=== PATIENT | male | born 1965 | race Caucasian/White ===

== ENCOUNTER 2017-12-05 11:51 | Inpatient (IN) | payer MEDICAID ==
[2017-12-05] VITALS (10 sets, daily range): BP systolic 92–116; BP diastolic 59–82
[~2017-12-05] VITALS: Ht 185.4 cm; Wt 117.8 kg
--- NOTE | 2017-12-05 12:11 | NUR ---
TAKEN TO RM 15 VIA WHEELCHAIR. PT C/O OF EXTREME THIRST
--- NOTE | 2017-12-05 12:30 | NUR ---
PT SUPINE IN BED, AIRWAY PATENT, RESP EVEN AND NON LABORED, SKIN P/W/D. C/O INCREASED THIRST. ICE CHIPS GIVEN AT THIS TIME.
[2017-12-05 12:46] LABS: HEMATOCRIT 50.2 % (39.0-50.0); HEMOGLOBIN 17.5 g/dl (14.0-18.0); IMMATURE GRANULOCYTES 0.5 % (0.0-5.0); MEAN CELL VOLUME 84.8 fL CALC (80.0-100.0); MEAN CORPUSCULAR HGB 29.6 pG CALC (26.0-32.0); MEAN CORPUSCULAR HGB CONC 34.9 g/L CALC (32.0-36.0); NEUT# 7.57 thou/uL (1.82-7.42); RED BLOOD COUNT 5.92 mill/uL (4.70-6.10); RED CELL DISTRI WIDTH 12.8 % (11.5-15.5)
[2017-12-05 13:10] LABS: ALBUMIN 4.4 g/dL (3.2-5.0); ALKALINE PHOSPHATASE 154 u/l (38-126); ANION GAP 24 (6-22 (CALC)); BILIRUBIN, TOTAL 0.7 mg/dL (0.0-1.4); BUN 64 mg/dL (9-20); BUN/CREATININE RATIO 26 (12-20 (CALC)); CARBON DIOXIDE 22 mmol/l (22-30); CHLORIDE 80 mmol/l (95-108); CPK 120 u/l (52-200); CREATININE 2.5 mg/dL (0.7-1.3); GFR 27 ML/MIN (>=60 (CALC)); GFR FOR AFR.AMER. 33 ML/MIN (>=60 (CALC)); LIPASE 326 u/l (23-300); POTASSIUM 4.8 mmol/l (3.5-5.1); SGOT/AST 28 u/l (17-59); SODIUM 120 mmol/l (137-146); TOTAL PROTEIN 8.2 g/dL (6.3-8.2)
[2017-12-05 13:24] LABS: MYOGLOBIN 314 ng/mL (0 - 121)
--- NOTE | 2017-12-05 13:30 | NUR ---
NO CHANGE IN PT STATUS. DR GRESHAM AT BEDSIDE TO DISCUSS CLINICAL FINDINGS. PT ALERT AND ORIENTED X 3, SPEECH CLEAR, NO ACUTE DISTRESS NOTED AT THIS TIME.
--- NOTE | 2017-12-05 13:45 | NUR ---
PT VOIDED 400CC CLEAR YELLOW URINE. SPECIMEN SENT TO LAB FOR ANALYSIS.
[2017-12-05 13:46] LABS: URINE BILIRUBIN - DIPSTICK NEGATIVE (NEGATIVE); URINE BLOOD DIPSTICK NEGATIVE (NEGATIVE); URINE COLOR YELLOW; URINE GLUCOSE - DIPSTICK >=1000 mg/dL (NEGATIVE); URINE KETONE NEGATIVE (NEGATIVE); URINE LEUK ESTERASE NEGATIVE (NEGATIVE); URINE NITRITE - DIPSTICK NEGATIVE (Negative); URINE PROTEIN - DIPSTICK NEGATIVE (NEG-TRACE); URINE SPECIFIC GRAVITY <=1.005; URINE UROBILINOGEN - DIPSTICK 0.2 E.U./dL (0.2)
[2017-12-05 13:50] LABS: URINE CLARITY CLEAR
[2017-12-05 13:52] LABS: INFLUENZA A NONE DETECTED (NONE DETECT)
[2017-12-05 13:53] LABS: INFLUENZA B NONE DETECTED (NONE DETECT)
--- NOTE | 2017-12-05 14:05 | NUR ---
ACCUCHECK REPEAT - HI
--- NOTE | 2017-12-05 14:12 | NUR ---
REPORT RECVD FROM MARY CHRISTIANSON IN ER
--- NOTE | 2017-12-05 14:21 | NUR ---
REPORT TO FLAVIA HERNANDEZ
[2017-12-05] MEDS ORDERED: ALLOPURINOL100 MG PO (14:22)
[2017-12-05] MEDS ORDERED: CHLORTHALID50 MG PO (14:23)
[2017-12-05] MEDS ORDERED: AMLODIPINE5 MG PO (14:23)
[2017-12-05] MEDS ORDERED: LOSARTAN POT50 MG PO (14:24)
--- NOTE | 2017-12-05 14:43 | NUR ---
PT ARRIVED FROM ER A&Ox4. PT AMBULATED TO BATHROOM THEN TO NEW STRETCHER WITH STEADY GAIT. IV INSULING & IVF RUNNING INTO #20 LFA. #20 RAC SL. PT C/O GENERALIZED WEAKNESS, DIZZINESS, EXTREME THIRST, AND BILATERAL BLURRY VISION WORSENING x1 WEEK. STATES BOSS MADE HIM COME TO ER TODAY, HAS NOT BEEN ABLE TO WORK x3 DAYS. PT DENIES WOUNDS. DENIES HX OF DIABETES. POWDER EXPERT SPOKE WITH PTS DAUGHTER WHO SAID HX OF KIDNEY PROBLEMS IS FROM YEARS OF UNCONTROLLED HTN. PT DOES NOT WEAR HEARING AIDS OR DENTURES. ADMITS TO SMOKING MARIJUANA. HAD A "NORMAL" BM YESTERDAY. ABD SOFT/NONTENDER, ACTIVE BS. DENIES ABNORMALITY WITH URINATION AND DENIES NEED FOR LAXATIVES. DENIES FALLING. DENIES USING A MOBILITY AID AT HOME. STATES HE DRIVES HIMSELF, LIVES WITH A COWORKER. JOKED THAT HE "HAS A BROKEN HEART BC ALL WOMEN HURT YOU". BREATHING IS EVEN/UNLABORED, LUNG SOUNDS CLEAR. STRONG PULSES. NO EDEMA. NORMAL SI/S2 SOUNDS. NSR ON TELE. EYES PERRLA @3. 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 BRADLEY. SPEECH CLEAR. DAUGHTER IS GRZEGORZ REBOLLEDO @[phone] PT GIVEN URINAL & CUP OF ICE CHIPS. EDUCATED ON CALLBELL & BED CONTROLS. PT HAS HOME MEDS WITH HIM BUT ASKS TO KEEP THEM UNTIL HIS BOSS COMES TO TAKE THEM HOME. BED IN LOWEST POSITION, TOP RAILS UP, WHEELS LOCKED, CALLBELL W/IN REACH. PT REQUEST CURTAINS CLOSED.
--- NOTE | 2017-12-05 15:43 | NUR ---
PT SLEEPING. SKIN WARM/DRY. DENIES PAIN. WILL CONTINUE TO MONITOR.
--- NOTE | 2017-12-05 16:12 | NUR ---
ACCUCHECK STILL READING "HI". PT SLEEPING. DENIES PAIN. DENIES SOB. DENIES N/V/D. CALLBELL W/IN REACH. IV INSULIN RUNNING AT 5. WILL CONTINUE TO MONITOR.
--- NOTE | 2017-12-05 16:59 | NUR ---
PT STANDING ON SIDE OF BED, USING URINAL.
--- NOTE | 2017-12-05 17:07 | NUR ---
DR QUINN @BEDSIDE. ASSESSING PT, DISCUSSING TEST RESULTS & POC.
--- NOTE | 2017-12-05 17:08 | NUR ---
PER DR QUINN, STOP INSULIN DRIP IN 1 HOUR, GIVE ORDERED INSULIN SC & RUN IVF, THEN USE SC INSULIN FOR COVERAGE.
--- NOTE | 2017-12-05 17:10 | NUR ---
PT DENIES BLURRY VISION AT THIS TIME. DENIES N/V/D. DENIES SOB. DENIES PAIN. STATES HE IS "FEELING BETTER" BUT WANTS TO SLEEP.
--- NOTE | 2017-12-05 17:17 | NUR ---
CALLED [facility] TO INFORM OF NEW DIET ORDERED. 2N PUMP ASSOCIATED WITH PT ON SHAFFER.
[2017-12-05 17:40] LABS: CREATININE 2.2 mg/dL (0.7-1.3); POTASSIUM 3.9 mmol/l (3.5-5.1)
--- NOTE | 2017-12-05 17:45 | NUR ---
YULISSA FROM LAB CALLED WITH PT BLOOD GLUCOSE AT 651. DR. QUINN NOTIFIED OF RESULTS.
--- NOTE | 2017-12-05 17:46 | NUR ---
DAUGHTER CALLED FOR INFO ON PT. PT GAVE DAUGHTER HIS PASSWORD TO RELEASE INFORMATION. PT TALKING TO DAUGHTER NOW ON PORT ICU PHONE. ATE 50% OF DINNER, ASKED TO KEEP LARGE PITCHER OF WATER.
--- NOTE | 2017-12-05 18:14 | NUR ---
DR QUINN NOTIFIED OF [facility] RESULTS. [id number], BGL 651, GAP 20 RBVO: GIVE LEVEMIR ALREADY ORDERED & GIVE NOVOLOG 10UNITS SC & STOP INSULIN DRIP. ORDERS FAXED TO .
--- NOTE | 2017-12-05 18:29 | NUR ---
PT EDUCATED ABOUT DIFFERENT KINDS OF INSULINS AND WHERE TO INJECT INSULIN. PT RETURNED DEMONSTRATION ON HOW TO GIVE SELF INSULIN IN ABD. PT STATES "HE USED TO GIVE HIS DAD INSULIN" THUS IS AWARE.
--- NOTE | 2017-12-05 18:45 | NUR ---
REPORT FROM Jonathan MENDES RN. ASSUMED PT. CARE.
--- NOTE | 2017-12-05 19:15 | NUR ---
PT. FOUND RESTING IN BED WITH EYES CLOSED IN NO DISTRESS. VSS. IV FLUIDS INFUSING AT 200 CC/HR. PT. EASILY AROUSABLE. ORIENTED X 3. PT. DENIES PAIN OR NEED AT THIS TIME. STATES HIS VISION IS IMPROVING. ASSISTED TO BEDSIDE TO URINATE. SKIN WARM AND DRY. AFEBRILE. RESPS EVEN AND UNLABORED. DENIES ABD PAIN, N/V. LUNGS CTA. BOWEL SOUNDS PRESENT IN ALL QUADS. PULSES INTACT THROUGHOUT. PT. UPDATED ON PLAN OF CARE FOR THE NIGHT. VOICES NO COMPLAINTS OR NEEDS. PITCHER REFILLED WITH WATER AT THIS TIME.
--- NOTE | 2017-12-05 20:30 | NUR ---
ACCUCHECK READS HIGH. PT. PROVIDED WITH HS SNACK. MADE AWARE OF ACCUCHECK AND NEW ORDERS RECEIVED FOR 10 UNITS NOVOLOG AND REPEAT LABS AT THIS TIME. PT. UPDATED ON PLAN OF CARE. WILL CONTINUE TO MONITOR.
--- NOTE | 2017-12-05 21:10 | NUR ---
LAB AT BEDSIDE AT THIS TIME TO DRAW PT. FOR REPEAT BMP. DENIES COMPLAINTS OR NEEDS.
[2017-12-05 21:33] LABS: POTASSIUM 3.6 mmol/l (3.5-5.1)
--- NOTE | 2017-12-05 22:20 | NUR ---
PT. WITH INTERMITTENT EPISODES OF BRADYCARDIA INTO THE 40'S WHILE SLEEPING. NO DISTRESS OTHERWISE. WILL CONTINUE TO MONITOR.
--- NOTE | 2017-12-05 23:19 | NUR ---
PT. RESTING IN BED WITH SNORING RESPIRATIONS. VITALS REMAIN STABLE AT THIS TIME. IV FLUIDS CONTINUE TO INFUSE AT 200 CC/HR ORDERED. CALL LIGHT REMAINS WITHIN REACH. WILL CONTINUE TO MONITOR.
[2017-12-06] VITALS (8 sets, daily range): BP systolic 108–144; BP diastolic 71–94
--- NOTE | 2017-12-06 01:05 | NUR ---
PT. RESTING IN BED WITH EYES CLOSED. NS CONTINUES TO INFUSE AT 200 CC/HR. PT. REMAINS IN NO DISTRESS. PT. WITH OCCASIONAL BRADYCARDIC EPISODES IN THE UPPER 30'S/40'S. OTHERWISE STABLE. CALL LIGHT REMAINS WITHIN REACH.
--- NOTE | 2017-12-06 03:00 | NUR ---
PT. CONTINUES TO SLEEP WITH SNORING RESPIRATIONS. VSS. NO DISTRESS. PT. VOICES NO COMPLAINTS OR NEEDS.
--- NOTE | 2017-12-06 04:00 | NUR ---
LABS OBTAINED AT THIS TIME. IV FLUIDS INFUSING WITHOUT SX OF INFILTRATION OR EXTRAVASATION. PT. REMAINS AFEBRILE. DENIES COMPLAINTS OF PAIN OR NEED. WILL CONTINUE TO ASSESS.
[2017-12-06 04:26] LABS: HEMATOCRIT 49.9 % (39.0-50.0); HEMOGLOBIN 17.4 g/dl (14.0-18.0); MEAN CELL VOLUME 84.9 fL CALC (80.0-100.0); MEAN CORPUSCULAR HGB 29.6 pG CALC (26.0-32.0); MEAN CORPUSCULAR HGB CONC 34.9 g/L CALC (32.0-36.0); RED BLOOD COUNT 5.88 mill/uL (4.70-6.10); RED CELL DISTRI WIDTH 12.6 % (11.5-15.5)
[2017-12-06 04:36] LABS: CHOLESTEROL HDL RATIO 5.4 (<4.4 (CALC)); CREATININE 1.9 mg/dL (0.7-1.3); MAGNESIUM 2.1 mg/dL (1.6-2.3); POTASSIUM 3.5 mmol/l (3.5-5.1)
--- NOTE | 2017-12-06 05:50 | NUR ---
PT. CONTINUES TO REST WITH SNORING RESPIRATIONS AND IN NO DISTRESS. PT. ALSO CONTINUES WITH INTERMITTENT EPISODES OF BRADYCARDIA IN THE UPPER 30'S. TELE STRIPS PRINTED AND PLACED IN THE CHART. IV FLUIDS CONTINUE TO INFUSE AT THIS TIME. CALL LIGHT REMAINS WITHIN REACH. WILL CONTINUE TO ASSESS.
--- NOTE | 2017-12-06 07:51 | NUR ---
PT SLEEPING IN BED. STATES HE DOESNT NORMALLY EAT BREAKFAST. DENIES PAIN. DENIES SOB. DENIES N/V/D. BREATHING EVEN/UNLABORED, LUNG SOUNDS CLEAR. STRONG/EVEN PULSES. NO EDEMA. GOOD CAP REFILL. A&Ox4. ABD SOFT/NONTENDER. CALLBELL W/IN REACH. BREAKFAST TRAY LEFT AT BEDSIDE. WILL CONTINUE TO MONITOR.
--- NOTE | 2017-12-06 08:38 | NUR ---
DR QUINN & DAVON,SALES REPRESENTATIVE GRAPHIC ART @BEDSIDE. ASSESSING PT, DISCUSSING TEST RESULTS & POC.
--- NOTE | 2017-12-06 09:18 | NUR ---
PT INQUIRING ABOUT CLOSES AIRPORT SO HIS FAMILY CAN PICK HIM UP BY [employer] WHEN HE IS DC & TAKE HIM BACK TO [place].
--- NOTE | 2017-12-06 10:45 | NUR ---
PT SLEEPING IN BED, NO S/S OF DISTRESS. WILL CONTINUE TO MONITOR.
--- NOTE | 2017-12-06 11:06 | NUR ---
GAUTAM MAYS @BEDSIDE WITH PT.
--- NOTE | 2017-12-06 11:06 | NUR ---
DAUGHTER CALLED AGAIN TODAY TO CHECK IF THERE'S ANYTHING NEW.
--- NOTE | 2017-12-06 11:11 | NUR ---
JANEY, CASE MANAGEMENT, @BEDSIDE WITH PT.
--- NOTE | 2017-12-06 12:03 | NUR ---
DR HENRANDEZ @BEDSIDE WITH PT.
--- NOTE | 2017-12-06 12:04 | NUR ---
RECVING MARY ROSAS FOR REPORT, TO TRANSFER TO [id number]
--- NOTE | 2017-12-06 12:20 | NUR ---
PTS HOME MEDS SENT HOME WITH BOSS, PER PTS REQUEST.
--- NOTE | 2017-12-06 12:35 | NUR ---
REPORT GIVEN TO MARY ANDREWS ON [facility]. PT OK TO TRANSFER AT ANY TIME.
--- NOTE | 2017-12-06 12:55 | NUR ---
PT TRANSFERED TO [facility] BY WITH IVF IN STABLE CONDITION. RECVING RN @BEDSIDE.
--- NOTE | 2017-12-06 13:15 | NUR ---
PT ARRIVES FROM ICU VIA WHEELCHAIR, ALERT AND ORIENTED X 3. ASSESSMENT NEGATIVE, CLEAR LUNGS, AMBULATORY, VSS. IVF INFUSES AT 200 ML/HR. NO COMPLAINTS, NO DISTRESS.
--- NOTE | 2017-12-06 16:31 | NUR ---
PT SEEN NAPPING IN THE BED THIS AFTERNOON. SNACK PROVIDED. NO DISTRESS.
--- NOTE | 2017-12-06 19:00 | NUR ---
BEDSIDE REPORT RECEIVED FROM MARY ANDREWS. PT RESTING IN BED SUPINE; ALERT AND ORIENTED. DENIES PAIN CURRENTLY. RESPIRATIONS EVEN AND UNLABORED ON ROOM AIR. VOIDED 1000ML CLEAR YELLOW URINE IN URINAL. PLAN OF CARE DISCUSSED. PT ENCOURAGED TO VERABLIZE CONCERNS. STATES UNDERSTANDING. SAFETY MEASURES IN PLACE. CALL LIGHT WITHIN REACH.
--- NOTE | 2017-12-07 00:07 | NUR ---
PT ASLEEP AT THIS TIME WITH NO SIGNS OF DISTRESS. RESPIRATIONS EVEN AND UNLABORED ON ROOM AIR. SCHEDULED LEVEMIR GIVEN AT 2200; PT EDUCATED ON DIFFERENT INSULINS. IV FLUIDS INFUSING WITHOUT DIFFICULTY; BOTH IV SITES APPEAR HEALTHY. INDEPENDENT IN ROOM. SAFETY MEASURES IN PLACE. CALL LIGHT WITHIN REACH.
--- NOTE | 2017-12-07 05:15 | NUR ---
PT AWAKE AND ALERT FOR VS AND BLOOD DRAW. NO REQUESTS OR CONCERNS AT THIS TIME. NO ACUTE CHANGES IN CONDITION THROUGHOUT THE NIGHT. SAFETY MEASURES IN PLACE. CALL LIGHT WITHIN REACH.
[2017-12-07 05:24] VITALS: BP 123/81
[2017-12-07 05:36] LABS: CREATININE 1.5 mg/dL (0.7-1.3); POTASSIUM 3.5 mmol/l (3.5-5.1)
[2017-12-07 05:38] LABS: ALBUMIN 3.1 g/dL (3.2-5.0)
--- NOTE | 2017-12-07 07:33 | NUR ---
PT REPORT RECIEVED FROM MARY JAIN. PT SLEEPING IN BED. NO S/S OF DISTRESS NOTED. CALL LIGHT IN REACH. WILL CONTINUE TO MONITOR.
[2017-12-07 08:05] VITALS: BP 136/87
--- NOTE | 2017-12-07 08:05 | NUR ---
PT ASSESSMENT COMPLETE. PT A/O X3. SPEECH IS CLEAR. PERRLA. PUPILS SIZE 3MM. RESP EVEN AND UNLABORED. LUNG SOUNDS CLEAR. ABDOMEN ROUND, SOFT. LAST BM 12/06/17. BOWEL SOUNDS ACTIVE X4. STRONG RADIAL AND PEDAL PULSES. #20 RAC SL. FLUSHED AND PATENT. SITE APPEARS HEALTHY. #18 LH NS @200. SITE APPEARS HEALTHY. PT DENIES ANY WEAKNESS. FLUID INTAKE ENCOURAGE. PLAN OF CARE DISCUSSED. PT STATES UNDERSTANDING. SAFETY PRECAUTIONS IN PLACE. CALL LIGHT IN REACH. WILL CONTINUE TO MONITOR.
[2017-12-07 09:21] VITALS: BP 136/87
[2017-12-07] MEDS ORDERED: LEVEMIR100 UNIT/M SC (10:57)
--- NOTE | 2017-12-07 11:21 | NUR ---
DR QUINN AND GAUTAM MAYS IN TO SEE PT.
--- NOTE | 2017-12-07 12:11 | NUR ---
PT WATCHING TELEVISION IN BED. NO S/S OF DISTRESS NOTED. PT DENIES ANY NEEDS AT THIS TIME. CALL LIGHT IN REACH. WILL CONTINUE TO MONITOR.
--- NOTE | 2017-12-07 12:50 | NUR ---
ALL DISCHARGE INSTRUCTIONS PROVIDED TO PT AND PRESCRIPTIONS DISCUSSED INDEPTH;IV SITE TO LEFT HAND AND RAC REMOVED WITH CATHETERS INTACT;PT DENIES ANY ADDITIONAL NEEDS AT THIS TIME;PT REFUSES WHEELCHAIR FOR DISCHARGE;AWAITING ON TRANSPORTATION HOME.WILL CONTINUE TO MONITOR
--- NOTE | 2017-12-07 13:04 | NUR ---
Discharge instructions given. Patient verbalizes understanding of same. Discharged in stable condition via Wheelchair to Home with *Other. All belongings sent with pt. Pt wheelchaired out of facility by volunteer in stable condition.
--- NOTE | 2017-12-07 13:19 | NUR ---
SANTIAGO FOUND IN PATIENTS ROOM,FAMILY MEMBER AND PATIENT NOTIFIED.
== END 2017-12-07 12:43 | disposition home or self-care (01) | DRG 638 ==
LOC: ED 11:51 → ED-I 13:18 → ED 13:41 → ICU 13:42 → MS2 13:42 → ED 13:50 → ED-I 13:50 → MS2 12-06 12:54
PROVIDERS: Family Medicine; Internal Medicine Nephrology; ADMIT Internal Medicine; ATTEND Internal Medicine
DX: E11.00 Type 2 diabetes mellitus with hyperosmolarity without nonketotic hyperglycemic-hyperosmolar coma (NKHHC) (principal); E87.1 Hypo-osmolality and hyponatremia; N17.9 Acute kidney failure, unspecified; E86.0 Dehydration; E11.22 Type 2 diabetes mellitus with diabetic chronic kidney disease; I12.9 Hypertensive chronic kidney disease with stage 1 through stage 4 chronic kidney disease, or unspecified chronic kidney disease; N18.9 Chronic kidney disease, unspecified; I95.9 Hypotension, unspecified